=== PATIENT | male | born 1960 | race Caucasian/White ===

== ENCOUNTER 2021-03-08 04:19 | Emergency (ER) | payer SELFPAY ==
[2021-03-08] MEDS ORDERED: methylPREDNISolone Sodium Succinate 125 MG/2 ML SDV IVPUSH ONE (04:20)
[2021-03-08] MEDS ORDERED: Famotidine 20 MG/2 ML SDV IVPUSH ONE (04:20)
[2021-03-08] MEDS ORDERED: diphenhydrAMINE 50 MG/ML SDV IVPUSH ONE (04:20)
[2021-03-08] MEDS ORDERED: Sodium Chloride 0.9% 1,000 ML IV ONE (04:24)
--- NOTE | 2021-03-08 04:33 | EDM.PDOC ---
ED HPI GENERAL MEDICAL PROBLEM - General Chief Complaint: Allergic Reaction Stated Complaint: ALLERGIC REACTION THROAT CLOSING Time Seen by Provider: 03/08/21 04:25 Source of Information: Reports: Patient, Family History Limitations: Reports: No Limitations - History of Present Illness INITIAL COMMENTS - FREE TEXT/NARRATIVE: ED ambulatory, with anaphylactic reaction, reports waking at 3am to go to bathroom and noted feeling like throat closing, took epi pen 30minutes [employer]. One similar episode in past. Does not know what was possible trigger to this or prior episode. No new food. Out at [facility] [place] yesterday. Recently started on Lisinopril but prior episode was before starting Lisinopril. - Related Data Allergies Allergy/AdvReac Type Severity Reaction Status Date / Time No Known Allergies Allergy Verified 03/08/21 04:29 Home Meds: Home Meds . [No Known Home Meds] 08/02/18 [History] Past Medical History - Past Health History Medical/Surgical History: Denies Medical/Surgical History Social & Family History - Caffeine Use Caffeine Use: Reports: Coffee ED ROS ALLERGIC REACTION - Review of Systems Review Of Systems: Comprehensive ROS is negative, except as noted in HPI. ED EXAM GENERAL NO PERIP PULSE - Physical Exam Exam: See Below Exam Limited By: No Limitations General Appearance: Alert, Mild Distress Eye Exam: Bilateral Eye: EOMI Ears: Normal External Exam Nose: Normal Inspection Throat/Mouth: Other (thick tongue muffled voice). No: No Airway Compromise Head: Atraumatic, Normocephalic Neck: Normal Inspection Respiratory/Chest: Decreased Breath Sounds, Rhonchi. No: Stridor Cardiovascular: Regular Rate, Rhythm, No Edema GI/Abdominal: Normal Bowel Sounds, Soft Extremities: Normal Inspection Neurological: Alert, Oriented, Normal Cognition, Normal Gait Psychiatric: Anxious Skin Exam: Warm, Dry, Intact, Normal Color, No Rash Course - Vital Signs Last Recorded V/S: Last Vital Signs Temp 98.3 F 03/08/21 06:16 Pulse 91 03/08/21 06:44 Resp 18 03/08/21 06:44 BP 191/76 H 03/08/21 06:44 Pulse Ox 99 03/08/21 06:44 - Orders/Labs/Meds Labs: Laboratory Tests 03/08/21 03/08/21 03/08/21 Range/Units 04:40 04:40 04:40 WBC 7.6 (5.0-10.0) 10^3/uL RBC 4.06 L (4.6-6.2) 10^6/uL Hgb 12.3 L (14.0-18.0) g/dL Hct 37.6 L (40.0-54.0) % MCV 92.6 (80-100) fL MCH 30.3 (27.0-34.0) pg MCHC 32.7 L (33.0-35.0) g/dL Plt Count 346 (150-450) 10^3/uL Neut % (Auto) 54.6 (42.2-75.2) % Lymph % (Auto) 27.9 (20.5-50.1) % Wythe % (Auto) 11.3 H (2-8) % Eos % (Auto) 4.6 H (1.0-3.0) % Baso % (Auto) 1.6 H (0.0-1.0) % Sodium 140 (136-145) mmol/L Potassium 3.8 (3.5-5.1) mmol/L Chloride 103 (98-107) mmol/L Carbon Dioxide 26 (21-32) mmol/L Anion Gap 14.8 H (7-13) mEq/L BUN 52 H (7-18) mg/dL Creatinine 2.69 H (0.70-1.30) mg/dL Est Cr Clr Drug Dosing 30.33 mL/min Estimated GFR (MDRD) 24 BUN/Creatinine Ratio 19.3 (No establ ref range) Glucose 106 H (70-99) mg/dL Lactic Acid 1.1 (0.4-2.0) mmol/L Calcium 8.0 L (8.5-10.1) mg/dL Total Bilirubin 0.5 (0.2-1.0) mg/dL AST 34 (15-37) U/L ALT 21 (16-63) U/L Alkaline Phosphatase 71 (46-116) U/L C-Reactive Protein 0.7 (0.0-0.9) mg/dL Total Protein 6.8 (6.4-8.2) g/dL Albumin 3.4 (3.4-5.0) g/dL Globulin 3.4 Albumin/Globulin Ratio 1.0 SARS-CoV-2 RNA (ALIRIO) (NEGATIVE) 03/08/21 Range/Units 06:15 WBC (5.0-10.0) 10^3/uL RBC (4.6-6.2) 10^6/uL Hgb (14.0-18.0) g/dL Hct (40.0-54.0) % MCV (80-100) fL MCH (27.0-34.0) pg MCHC (33.0-35.0) g/dL Plt Count (150-450) 10^3/uL Neut % (Auto) (42.2-75.2) % Lymph % (Auto) (20.5-50.1) % Wythe % (Auto) (2-8) % Eos % (Auto) (1.0-3.0) % Baso % (Auto) (0.0-1.0) % Sodium (136-145) mmol/L Potassium (3.5-5.1) mmol/L Chloride (98-107) mmol/L Carbon Dioxide (21-32) mmol/L Anion Gap (7-13) mEq/L BUN (7-18) mg/dL Creatinine (0.70-1.30) mg/dL Est Cr Clr Drug Dosing mL/min Estimated GFR (MDRD) BUN/Creatinine Ratio (No establ ref range) Glucose (70-99) mg/dL Lactic Acid (0.4-2.0) mmol/L Calcium (8.5-10.1) mg/dL Total Bilirubin (0.2-1.0) mg/dL AST (15-37) U/L ALT (16-63) U/L Alkaline Phosphatase (46-116) U/L C-Reactive Protein (0.0-0.9) mg/dL Total Protein (6.4-8.2) g/dL Albumin (3.4-5.0) g/dL Globulin Albumin/Globulin Ratio SARS-CoV-2 RNA (ALIRIO) Negative (NEGATIVE) Meds: Medications Discontinued Medications Generic Name Dose Route Start Last Admin Trade Name Freq PRN Reason Stop Dose Admin Albuterol 2.5 mg 03/08/21 05:46 03/08/21 05:51 Albuterol 0.083% 2.5 Mg/3 Ml Neb Soln NEB 03/08/21 05:47 2.5 mg ONETIME ONE Administration Albuterol/Ipratropium 3 ml 03/08/21 05:58 03/08/21 06:13 Albuterol/Ipratropium 3.0-0.5 Mg/3 Ml Neb Soln NEB 03/08/21 05:59 3 ml ONETIME ONE Administration Diphenhydramine HCl 50 mg 03/08/21 04:20 03/08/21 04:30 Diphenhydramine 50 Mg/Ml Sdv IVPUSH 03/08/21 04:21 50 mg ONETIME ONE Administration Epinephrine HCl 0.3 mg 03/08/21 04:33 03/08/21 05:19 Epinephrine 1 Mg/1 Ml Amp IM 03/08/21 04:34 0.3 mg ONETIME ONE Administration Epinephrine HCl 0.3 mg 03/08/21 05:09 03/08/21 05:19 Epinephrine 1 Mg/Ml Sdv SUBCUT 03/08/21 05:10 Not Given ONETIME ONE Epinephrine HCl Confirm 03/08/21 05:12 03/08/21 05:20 Epinephrine 1 Mg/1 Ml Amp Administered 03/08/21 05:13 Not Given Dose 1 mg .ROUTE .STK-MED ONE Famotidine 20 mg 03/08/21 04:20 03/08/21 04:30 Famotidine 20 Mg/2 Ml Sdv IVPUSH 03/08/21 04:21 20 mg ONETIME ONE Administration Sodium Chloride 1,000 mls @ 500 mls/hr 03/08/21 04:24 03/08/21 04:34 Normal Saline IV 03/08/21 06:23 500 mls/hr .BOLUS ONE Administration Ipratropium Mico 1 mg 03/08/21 06:41 Ipratropium 0.02% 0.5 Mg/2.5 Ml Neb Soln NEB 03/08/21 06:42 ONETIME ONE Ipratropium Mico Confirm 03/08/21 06:47 Ipratropium 0.02% 0.5 Mg/2.5 Ml Neb Soln Administered 03/08/21 06:48 Dose 0.5 mg .ROUTE .STK-MED ONE Methylprednisolone Sodium Succinate 125 mg 03/08/21 04:20 03/08/21 04:30 Methylprednisolone Sodium Succinate 125 Mg/2 Ml Sdv IVPUSH 03/08/21 04:21 125 mg ONETIME ONE Administration Racepinephrine 0.5 ml 03/08/21 05:12 03/08/21 05:18 Racepinephrine 2.25% 0.5 Ml Neb Soln NEB 03/08/21 05:13 0.5 ml ONETIME ONE Administration Racepinephrine 1 ml 03/08/21 06:40 Racepinephrine 2.25% 0.5 Ml Neb Soln NEB 03/08/21 06:41 ONETIME ONE Racepinephrine Confirm 03/08/21 06:43 Racepinephrine 2.25% 0.5 Ml Neb Soln Administered 03/08/21 06:44 Dose 1 ml .ROUTE .STK-MED ONE - Re-Assessments/Exams Free Text/Narrative Re-Assessment/Exam: 03/08/21 06:15 Minimal improvement. Voice continued muffled. slight improvement swallowing, rare cough. HS stable 70's to 80's. Sats variable 92-100% Patient does not feeling better than presentation. TC Dr Yanick Silva. Accepting. Tx via [facility]. Departure - Departure Time of Disposition: 06:26 Disposition: DC/Tfer to Acute Hospital 02 Condition: Fair, Undetermined Clinical Impression: Angio-edema Qualifiers: Encounter type: initial encounter Qualified Code(s): T78.3XXA - Angioneurotic edema, initial encounter - Discharge Information *PRESCRIPTION DRUG MONITORING PROGRAM REVIEWED*: No *COPY OF PRESCRIPTION DRUG MONITORING REPORT IN PATIENT BRENNEN: No Forms: ED Department Discharge Sepsis Event Note (ED) - Evaluation Sepsis Screening Result: No Definite Risk
[2021-03-08] MEDS: EPINEPHrine 1 MG/1 ML Amp IM ONE ×2 (04:48→05:19)
[2021-03-08 05:04] LABS: ANION GAP 14.8 mEq/L (7-13)
[2021-03-08] MEDS ORDERED: EPINEPHrine 1 MG/ML SDV SUBCUT ONE (05:09)
[2021-03-08] MEDS ORDERED: EPINEPHrine 1 MG/1 ML Amp ONE (05:12)
[2021-03-08] MEDS ORDERED: Racepinephrine 2.25% 0.5 ML Neb Soln NEB ONE ×2 (05:12→06:40)
[2021-03-08] MEDS ORDERED: Albuterol 0.083% 2.5 MG/3 ML Neb Soln NEB ONE (05:46)
[2021-03-08] MEDS ORDERED: Albuterol/Ipratropium 3.0-0.5 MG/3 ML Neb Soln NEB ONE (05:58)
[2021-03-08] MEDS ORDERED: Ipratropium 0.02% 0.5 MG/2.5 ML Neb Soln NEB ONE (06:41)
[2021-03-08] MEDS ORDERED: Racepinephrine 2.25% 0.5 ML Neb Soln ONE (06:43)
[2021-03-08] MEDS ORDERED: Ipratropium 0.02% 0.5 MG/2.5 ML Neb Soln ONE (06:47)
== END 2021-03-08 06:48 ==
LOC: DL.ED 04:19
DX: T78.3XXA Angioneurotic edema, initial encounter (principal); Z20.822 Contact with and (suspected) exposure to COVID-19
CPT/HCPCS: 36415; 80053; 83605; 85025; 86140; 94640; J0171; J1200; J2930; J3490; J7030; J7613-GY; J7620-GY; U0002

== ENCOUNTER 2021-12-30 03:31 | Observation (INO) | payer MEDICAID ==
[2021-12-30] MEDS ORDERED: methylPREDNISolone Sodium Succinate 125 MG/2 ML SDV IVPUSH ONE (03:51)
[2021-12-30] MEDS ORDERED: Famotidine 20 MG/2 ML SDV IVPUSH ONE (03:52)
[2021-12-30 04:26] LABS: ANION GAP 18.2 mEq/L (7-13)
[2021-12-30] MEDS ORDERED: Albuterol/Ipratropium 3.0-0.5 MG/3 ML Neb Soln NEB PRN (07:09)
[2021-12-30] MEDS ORDERED: Acetaminophen 325 MG Tab PO PRN (07:09)
[2021-12-30] MEDS ORDERED: HYDROmorphone 0.5 MG/0.5 ML Syringe IVPUSH PRN (07:09)
[2021-12-30] MEDS ORDERED: Ondansetron 4 MG Tab.DIS PO PRN (07:09)
[2021-12-30] MEDS ORDERED: diphenhydrAMINE 50 MG/ML SDV IVPUSH ONE (07:13)
[2021-12-30] MEDS ORDERED: Sodium Chloride 0.9% 1,000 ML IV SCH (08:20)
[2021-12-30] MEDS: Nicotine 21 MG/24 Hr Patch TRDERM SCH (08:24)
[2021-12-30] MEDS: Famotidine 20 MG/2 ML SDV IVPUSH SCH (12:46)
[2021-12-30 15:07] LABS: BARBITURATES,URINE NEGATIVE (NEGATIVE); BENZODIAZEPINE,URINE NEGATIVE (NEGATIVE); MDMA (ECSTASY), URINE NEGATIVE (NEGATIVE); METHADONE,URINE NEGATIVE (NEGATIVE); METHAMPHETAMINES,URINE NEGATIVE (NEGATIVE); OPIATES,URINE NEGATIVE (NEGATIVE); PHENCYCLIDINE,URINE NEGATIVE (NEGATIVE); TCA,URINE NEGATIVE (NEGATIVE)
[2021-12-30 15:08] LABS: AMPHETAMINES,URINE NEGATIVE (NEGATIVE); OXYCODONE,URINE NEGATIVE (NEGATIVE)
[2021-12-30] MEDS: Dexamethasone 4 MG/ML SDV IVPUSH SCH ×2 (15:15→21:30)
[2021-12-30] MEDS ORDERED: Naproxen 500 MG Tab PO SCH (18:00)
[2021-12-30] MEDS ORDERED: Non-Formulary Medication 1 Each (Fluticasone/Vilanterol 1 EACH Each) INH SCH (21:00)
[2021-12-30] MEDS ORDERED: Famotidine 20 MG/2 ML SDV IVPUSH SCH (21:00)
[2021-12-30] MEDS ORDERED: Montelukast 10 MG Tab PO SCH (21:00)
[2021-12-30] MEDS ORDERED: Check Patch TRDERM SCH (21:00)
[2021-12-30] MEDS: diphenhydrAMINE 50 MG/ML SDV IVPUSH SCH (21:26)
[2021-12-31] MEDS: Nicotine 21 MG/24 Hr Patch TRDERM SCH (08:06)
[2021-12-31] MEDS: diphenhydrAMINE 50 MG/ML SDV IVPUSH SCH (08:08)
[2021-12-31] MEDS: Famotidine 20 MG/2 ML SDV IVPUSH SCH (08:08)
[2021-12-31] MEDS: Dexamethasone 4 MG/ML SDV IVPUSH SCH (08:09)
[2021-12-31] MEDS ORDERED: Naproxen 500 MG Tab PO SCH (09:00)
[2021-12-31] MEDS ORDERED: hydrALAZINE 20 MG/ML SDV IVPUSH PRN (10:28)
[2021-12-31] MEDS ORDERED: Dexamethasone 4 MG/ML SDV IVPUSH ONE (12:00)
== END 2021-12-31 13:00 | disposition home or self-care (01) ==
LOC: DL.ED 03:31 → DL.MS 07:16 → DL.ED 07:52
PROVIDERS: ADMIT Internal Medicine; ATTEND Internal Medicine
DX: T78.3XXA Angioneurotic edema, initial encounter (principal); E87.2 Acidosis; D50.9 Iron deficiency anemia, unspecified; I12.9 Hypertensive chronic kidney disease with stage 1 through stage 4 chronic kidney disease, or unspecified chronic kidney disease; N17.9 Acute kidney failure, unspecified; N18.30 Chronic kidney disease, stage 3 unspecified; R73.9 Hyperglycemia, unspecified; F17.210 Nicotine dependence, cigarettes, uncomplicated; Z71.6 Tobacco abuse counseling; Z79.51 Long term (current) use of inhaled steroids; Z79.899 Other long term (current) drug therapy
CPT/HCPCS: 36415; 76770; 80053; 80305; 84439; 84443; 84484; 85025; 85651; 86038; 86140; 86160; 86162; 87081; 87430; 93005; 96374; 96375; 96376; 99285; A9270; G0378; J0360; J1100; J1200; J2930; J3490; J7030

== ENCOUNTER 2023-02-02 02:27 | Inpatient (IN) | payer MEDICAID ==
[2023-02-02 02:54] LABS: HEMATOCRIT 37.8 % (40.0-54.0); MEAN CORPUSCULAR HEMOGLOBIN 29.1 pg (27.0-34.0); MEAN CORPUSCULAR HGB CONC 34.4 g/dL (33.0-35.0); MEAN CORPUSCULAR VOLUME 84.6 fL (80-100); PLATELET COUNT,PLT 404 10^3/uL (150-450); RED BLOOD CELL COUNT 4.47 10^6/uL (4.6-6.2); WHITE BLOOD CELL COUNT,WBC 10.9 10^3/uL (5.0-10.0)
[2023-02-02] MEDS ORDERED: Dexamethasone 4 MG/ML SDV IVPUSH ONE (02:55)
[2023-02-02] MEDS ORDERED: Albuterol/Ipratropium 3.0-0.5 MG/3 ML Neb Soln NEB ONE ×2 (02:55→02:56)
[2023-02-02] MEDS ORDERED: Sodium Chloride 0.9% 1,000 ML IV ONE ×3 (02:58→03:04)
[2023-02-02] MEDS ORDERED: Ketorolac 30 MG/ML SDV IVPUSH ONE (03:01)
[2023-02-02] MEDS ORDERED: Levofloxacin/Dextrose 5%-Water 750 MG in Premix Bag 1 BAG IV ONE (03:11)
[2023-02-02 03:12] LABS: BASOPHILS PERCENT AUTO 0.2 % (0.0-1.0); EOSINOPHILS PERCENT AUTO 0.1 % (1.0-3.0); LYMPHOCYTES PERCENT AUTO 20.1 % (20.5-50.1); MONOCYTES PERCENT AUTO 21.4 % (2-8); NEUTROPHILS PERCENT AUTO 58.2 % (42.2-75.2)
[2023-02-02] MEDS: Albuterol/Ipratropium 3.0-0.5 MG/3 ML Neb Soln NEB ONE ×2 (03:12→03:13)
[2023-02-02 03:17] LABS: LACTIC ACID 1.7 mmol/L (0.4-2.0)
[2023-02-02 03:25] LABS: O2 DELIVERY DEVICE NASAL CANNULA
[2023-02-02 03:26] LABS: A/G RATIO 0.7; ALBUMIN 3.4 g/dL (3.4-5.0); ANION GAP 20.3 mEq/L (7-13); BILIRUBIN TOTAL 0.5 mg/dL (0.2-1.0); BUN/CREATININE RATIO 10.7 (No establ ref range); CALCIUM 8.7 mg/dL (8.5-10.1); CREATININE 1.78 mg/dL (0.70-1.30); EST CRCL DRUG DOSING (CG) 46.02 mL/min; POTASSIUM,K 3.3 mmol/L (3.5-5.1)
[2023-02-02 03:30] LABS: BASE EXCESS VENOUS -5.7 mmol/l ((-2)-(+3)); BICARBONATE,VENOUS 18 mmol/l (19-25); O2 SATURATION VENOUS 90.8 % (60-80); PCO2 VENOUS 33 mmHg (41-51); PH,VENOUS 7.36 (7.31-7.41); PO2 VENOUS 67 mmHg (35-42)
[2023-02-02] MEDS ORDERED: Iopamidol 755 Mg/ML 100 ML Bottle IVPUSH ONE (03:30)
[2023-02-02 03:41] LABS: LYMPHOCYTES PERCENT MAN 18 % (20-50); MONOCYTES PERCENT MAN 20 % (2-8); SEG NEUTROPHILS PERCENT MAN 62 % (42-75)
[2023-02-02] MEDS: Sodium Chloride 0.9% 10 ML Syringe FLUSH PRN ×3 (05:13→21:31)
[2023-02-02] MEDS ORDERED: Potassium Chloride 10 MEQ Tab.ER PO ONE (05:41)
[2023-02-02] MEDS ORDERED: Acetaminophen 325 MG Tab PO PRN (07:41)
[2023-02-02] MEDS ORDERED: Acetaminophen/HYDROcodone 325-5 MG Tab PO PRN (07:41)
[2023-02-02] MEDS ORDERED: Magnesium Hydroxide 400 MG/5 ML Susp 30 ML Cup PO PRN (07:43)
[2023-02-02] MEDS ORDERED: Ondansetron 4 MG/2 ML SDV IVPUSH PRN (07:43)
[2023-02-02] MEDS ORDERED: Polyethylene Glycol 3350 Powder 17 GM Packet PO PRN (07:43)
[2023-02-02] MEDS ORDERED: Glucagon,Human Recombinant 1 MG Vial IM PRN (07:46)
[2023-02-02] MEDS ORDERED: 50% Dextrose in Water 50 ML Syringe IVPUSH PRN (07:46)
[2023-02-02] MEDS ORDERED: Metoprolol Tartrate 5 MG/5 ML SDV IVPUSH PRN (07:47)
[2023-02-02] MEDS ORDERED: Famotidine 20 MG Tab PO ONE (07:48)
[2023-02-02] MEDS ORDERED: Famotidine 20 MG/2 ML SDV IVPUSH ONE (09:00)
[2023-02-02] MEDS ORDERED: Magnesium Sulfate/Water 2 GM in Premix Bag 1 BAG IV ONE (09:00)
[2023-02-02] MEDS: Insulin Lispro 100 Units/ML 3 ML Vial SUBCUT SCH ×3 (10:14→17:24)
[2023-02-02] MEDS: Saccharomyces Boulardii (Probiotic) 250 MG Cap PO SCH ×2 (10:17→21:31)
[2023-02-02] MEDS: Nicotine 21 MG/24 Hr Patch TRDERM SCH (10:24)
[2023-02-02] MEDS: methylPREDNISolone Sodium Succinate 125 MG/2 ML SDV IVPUSH SCH ×3 (10:27→21:30)
[2023-02-02] MEDS: Tiotropium Bromide 4 GM Inhalation Spray (2.5mcg/1 dose; 10 doses) INH SCH (10:29)
[2023-02-02] MEDS ORDERED: Insulin Glarg,Human.Rec.Analog 100 Unit/ML SUBCUT ONE (10:30)
[2023-02-02] MEDS: Piperacillin/Tazobactam 3.375 GM in Sodium Chloride 0.9% 100 ML IV SCH ×2 (13:02→17:51)
[2023-02-02] MEDS: Albuterol/Ipratropium 3.0-0.5 MG/3 ML Neb Soln NEB PRN ×2 (15:17→21:50)
[2023-02-02] MEDS: Albuterol/Ipratropium 3.0-0.5 MG/3 ML Neb Soln NEB SCH (17:54)
[2023-02-02] MEDS: Famotidine 20 MG Tab PO SCH ×2 (17:57→21:34)
[2023-02-02 18:41] LABS: HEMOGLOBIN A1C 5.9 % (<5.7)
[2023-02-02 18:51] LABS: ALBUMIN 2.8 g/dL (3.4-5.0); ANION GAP 17.3 mEq/L (7-13); BUN/CREATININE RATIO 17.5 (No establ ref range); CALCIUM 8.6 mg/dL (8.5-10.1); CREATININE 1.43 mg/dL (0.70-1.30); EST CRCL DRUG DOSING (CG) 57.28 mL/min; POTASSIUM,K 4.3 mmol/L (3.5-5.1); PROTEIN TOTAL,TP 7.2 g/dL (6.4-8.2)
[2023-02-02 18:52] LABS: BILIRUBIN TOTAL 0.2 mg/dL (0.2-1.0)
[2023-02-02 18:53] LABS: A/G RATIO 0.64
[2023-02-02] MEDS ORDERED: Non-Formulary Medication 1 Each (Fluticasone/Vilanterol 1 EACH Each) INH SCH (21:00)
[2023-02-02] MEDS ORDERED: Insulin Glarg,Human.Rec.Analog 100 Unit/ML SUBCUT SCH (21:00)
[2023-02-02] MEDS: Montelukast 10 MG Tab PO SCH (21:31)
[2023-02-02] MEDS: Loratadine 10 MG Tab PO SCH (21:31)
[2023-02-02] MEDS: Melatonin 3 MG Tab PO PRN (21:50)
[2023-02-03] MEDS: methylPREDNISolone Sodium Succinate 125 MG/2 ML SDV IVPUSH SCH (02:06)
[2023-02-03] MEDS: Albuterol/Ipratropium 3.0-0.5 MG/3 ML Neb Soln NEB PRN ×3 (03:10→21:39)
[2023-02-03] MEDS: Piperacillin/Tazobactam 3.375 GM in Sodium Chloride 0.9% 100 ML IV SCH ×5 (05:26→17:47)
[2023-02-03 06:12] LABS: BASOPHILS PERCENT AUTO 0.2 % (0.0-1.0); HEMATOCRIT 31.4 % (40.0-54.0); HEMOGLOBIN 10.6 g/dL (14.0-18.0); LYMPHOCYTES PERCENT AUTO 8.6 % (20.5-50.1); MEAN CORPUSCULAR HEMOGLOBIN 28.7 pg (27.0-34.0); MEAN CORPUSCULAR HGB CONC 33.8 g/dL (33.0-35.0); MEAN CORPUSCULAR VOLUME 85.1 fL (80-100); MONOCYTES PERCENT AUTO 6.6 % (2-8); NEUTROPHILS PERCENT AUTO 84.6 % (42.2-75.2); PLATELET COUNT,PLT 404 10^3/uL (150-450); RED BLOOD CELL COUNT 3.69 10^6/uL (4.6-6.2); WHITE BLOOD CELL COUNT,WBC 9.2 10^3/uL (5.0-10.0)
[2023-02-03 06:31] LABS: ALBUMIN 2.5 g/dL (3.4-5.0); ANION GAP 17.1 mEq/L (7-13); BILIRUBIN TOTAL 0.1 mg/dL (0.2-1.0); BUN/CREATININE RATIO 18.9 (No establ ref range); CALCIUM 8.6 mg/dL (8.5-10.1); CREATININE 1.32 mg/dL (0.70-1.30); EST CRCL DRUG DOSING (CG) 62.05 mL/min; POTASSIUM,K 4.1 mmol/L (3.5-5.1); PROTEIN TOTAL,TP 6.6 g/dL (6.4-8.2)
[2023-02-03 06:47] LABS: A/G RATIO 0.61; C-REACTIVE PROTEIN 26.5 mg/dL (0.0-0.9)
[2023-02-03] MEDS: Dexamethasone 4 MG/ML SDV IVPUSH SCH ×2 (08:13→21:38)
[2023-02-03] MEDS: Sodium Chloride 0.9% 10 ML Syringe FLUSH PRN ×3 (08:14→21:38)
[2023-02-03] MEDS: Insulin Lispro 100 Units/ML 3 ML Vial SUBCUT SCH ×3 (08:36→17:23)
[2023-02-03] MEDS ORDERED: Loratadine 10 MG Tab PO SCH (09:00)
[2023-02-03] MEDS ORDERED: guaiFENesin 600 MG Tab.ER PO ONE (09:25)
[2023-02-03] MEDS: Hydrochlorothiazide/Triamterene 25-37.5 Tab PO SCH (09:32)
[2023-02-03] MEDS: Famotidine 20 MG Tab PO SCH ×2 (09:32→21:42)
[2023-02-03] MEDS: Saccharomyces Boulardii (Probiotic) 250 MG Cap PO SCH ×2 (09:32→21:39)
[2023-02-03] MEDS: amLODIPine 5 MG Tab PO SCH (09:33)
[2023-02-03] MEDS: Nicotine 21 MG/24 Hr Patch TRDERM SCH (09:35)
[2023-02-03] MEDS: ANORO ELLIPTA INH SCH (09:40)
[2023-02-03] MEDS: Insulin Glarg,Human.Rec.Analog 100 Unit/ML SUBCUT SCH ×2 (09:42→21:50)
[2023-02-03] MEDS: Tiotropium Bromide 4 GM Inhalation Spray (2.5mcg/1 dose; 10 doses) INH SCH (09:44)
[2023-02-03] MEDS: Albuterol/Ipratropium 3.0-0.5 MG/3 ML Neb Soln NEB SCH ×2 (09:50→18:31)
[2023-02-03] MEDS: Sodium Chloride 0.9% 250 ML IV SCH ×2 (11:46→16:42)
[2023-02-03] MEDS: guaiFENesin 600 MG Tab.ER PO SCH (21:39)
[2023-02-03] MEDS: Melatonin 3 MG Tab PO PRN (21:40)
[2023-02-03] MEDS: Loratadine 10 MG Tab PO SCH (21:41)
[2023-02-03] MEDS: Montelukast 10 MG Tab PO SCH (21:42)
[2023-02-03] MEDS: HYDROmorphone 0.5 MG/0.5 ML Syringe IVPUSH PRN (21:43)
[2023-02-04] MEDS: Sodium Chloride 0.9% 10 ML Syringe FLUSH PRN (00:15)
[2023-02-04] MEDS: Piperacillin/Tazobactam 3.375 GM in Sodium Chloride 0.9% 100 ML IV SCH ×4 (00:16→17:19)
[2023-02-04] MEDS: Albuterol/Ipratropium 3.0-0.5 MG/3 ML Neb Soln NEB PRN ×3 (01:30→12:14)
[2023-02-04] MEDS: HYDROmorphone 0.5 MG/0.5 ML Syringe IVPUSH PRN (01:30)
[2023-02-04 05:55] LABS: HEMATOCRIT 31.1 % (40.0-54.0); MEAN CORPUSCULAR HEMOGLOBIN 32.9 pg (27.0-34.0); MEAN CORPUSCULAR HGB CONC 38.6 g/dL (33.0-35.0); MEAN CORPUSCULAR VOLUME 85.2 fL (80-100); PLATELET COUNT,PLT 477 10^3/uL (150-450); RED BLOOD CELL COUNT 3.65 10^6/uL (4.6-6.2); WHITE BLOOD CELL COUNT,WBC 15.4 10^3/uL (5.0-10.0)
[2023-02-04 06:01] LABS: LYMPHOCYTES PERCENT AUTO 7.3 % (20.5-50.1); MONOCYTES PERCENT AUTO 9.5 % (2-8); NEUTROPHILS PERCENT AUTO 83.1 % (42.2-75.2)
[2023-02-04 06:02] LABS: BASOPHILS PERCENT AUTO 0.1 % (0.0-1.0)
[2023-02-04 06:19] LABS: ALBUMIN 2.5 g/dL (3.4-5.0); ANION GAP 12.4 mEq/L (7-13); BILIRUBIN TOTAL 0.2 mg/dL (0.2-1.0); BUN/CREATININE RATIO 20.3 (No establ ref range); CREATININE 1.28 mg/dL (0.70-1.30); EST CRCL DRUG DOSING (CG) 63.99 mL/min; MAGNESIUM 1.8 mg/dL (1.8-2.4); POTASSIUM,K 4.4 mmol/L (3.5-5.1); PROTEIN TOTAL,TP 6.5 g/dL (6.4-8.2)
[2023-02-04 06:20] LABS: A/G RATIO 0.63; C-REACTIVE PROTEIN 14.4 mg/dL (0.0-0.9)
[2023-02-04 06:22] LABS: LYMPHOCYTES PERCENT MAN 9 % (20-50); MONOCYTES PERCENT MAN 7 % (2-8); SEG NEUTROPHILS PERCENT MAN 84 % (42-75)
[2023-02-04] MEDS: Insulin Lispro 100 Units/ML 3 ML Vial SUBCUT SCH ×3 (07:39→16:36)
[2023-02-04] MEDS: Albuterol/Ipratropium 3.0-0.5 MG/3 ML Neb Soln NEB SCH ×2 (08:39→17:19)
[2023-02-04] MEDS: amLODIPine 5 MG Tab PO SCH (08:39)
[2023-02-04] MEDS: Famotidine 20 MG Tab PO SCH ×2 (08:40→20:36)
[2023-02-04] MEDS: guaiFENesin 600 MG Tab.ER PO SCH ×2 (08:40→20:36)
[2023-02-04] MEDS: Hydrochlorothiazide/Triamterene 25-37.5 Tab PO SCH (08:40)
[2023-02-04] MEDS: Saccharomyces Boulardii (Probiotic) 250 MG Cap PO SCH ×2 (08:41→20:36)
[2023-02-04] MEDS: Insulin Glarg,Human.Rec.Analog 100 Unit/ML SUBCUT SCH ×2 (08:47→20:33)
[2023-02-04] MEDS: ANORO ELLIPTA INH SCH (08:47)
[2023-02-04] MEDS: Tiotropium Bromide 4 GM Inhalation Spray (2.5mcg/1 dose; 10 doses) INH SCH (08:47)
[2023-02-04] MEDS: Nicotine 21 MG/24 Hr Patch TRDERM SCH (08:49)
[2023-02-04] MEDS: VANCOmycin 1.5 GM/300 ML 1.5 GM in Premix Bag 1 BAG IV SCH (08:55)
[2023-02-04] MEDS: Dexamethasone 4 MG/ML SDV IVPUSH SCH ×2 (08:56→20:35)
[2023-02-04] MEDS: hydrALAZINE 20 MG/ML SDV IVPUSH PRN ×2 (11:00→16:58)
[2023-02-04] MEDS ORDERED: cloNIDine 0.1 MG Tab PO ONE (17:22)
[2023-02-04] MEDS: Melatonin 3 MG Tab PO PRN (20:35)
[2023-02-04] MEDS: cloNIDine 0.1 MG Tab PO SCH (20:36)
[2023-02-04] MEDS: Montelukast 10 MG Tab PO SCH (20:36)
[2023-02-04] MEDS: Loratadine 10 MG Tab PO SCH (20:36)
[2023-02-05] MEDS: Piperacillin/Tazobactam 3.375 GM in Sodium Chloride 0.9% 100 ML IV SCH ×6 (05:35→23:51)
[2023-02-05 06:25] LABS: BASOPHILS PERCENT AUTO 0.3 % (0.0-1.0); HEMATOCRIT 32.2 % (40.0-54.0); LYMPHOCYTES PERCENT AUTO 10.4 % (20.5-50.1); MEAN CORPUSCULAR HEMOGLOBIN 28.6 pg (27.0-34.0); MEAN CORPUSCULAR HGB CONC 34.2 g/dL (33.0-35.0); MEAN CORPUSCULAR VOLUME 83.9 fL (80-100); NEUTROPHILS PERCENT AUTO 79.3 % (42.2-75.2); PLATELET COUNT,PLT 488 10^3/uL (150-450); RED BLOOD CELL COUNT 3.84 10^6/uL (4.6-6.2); WHITE BLOOD CELL COUNT,WBC 15.8 10^3/uL (5.0-10.0)
[2023-02-05 06:49] LABS: ALBUMIN 2.6 g/dL (3.4-5.0); BILIRUBIN TOTAL 0.3 mg/dL (0.2-1.0); BUN/CREATININE RATIO 20.6 (No establ ref range); C-REACTIVE PROTEIN 7.9 mg/dL (0.0-0.9); CALCIUM 8.9 mg/dL (8.5-10.1); CREATININE 1.41 mg/dL (0.70-1.30); EST CRCL DRUG DOSING (CG) 58.09 mL/min; MAGNESIUM 1.8 mg/dL (1.8-2.4); PROTEIN TOTAL,TP 6.4 g/dL (6.4-8.2)
[2023-02-05 06:51] LABS: A/G RATIO 0.68
[2023-02-05] MEDS: hydrALAZINE 20 MG/ML SDV IVPUSH PRN (07:51)
[2023-02-05] MEDS: Hydrochlorothiazide/Triamterene 25-37.5 Tab PO SCH ×3 (07:53→09:07)
[2023-02-05] MEDS: cloNIDine 0.1 MG Tab PO SCH ×3 (07:54→21:11)
[2023-02-05] MEDS: Dexamethasone 4 MG/ML SDV IVPUSH SCH ×2 (07:54→09:06)
[2023-02-05] MEDS: Saccharomyces Boulardii (Probiotic) 250 MG Cap PO SCH ×3 (07:54→21:10)
[2023-02-05] MEDS: guaiFENesin 600 MG Tab.ER PO SCH ×3 (07:55→21:11)
[2023-02-05] MEDS: amLODIPine 5 MG Tab PO SCH ×2 (07:55→09:07)
[2023-02-05] MEDS: Famotidine 20 MG Tab PO SCH ×3 (07:55→21:12)
[2023-02-05] MEDS: Insulin Lispro 100 Units/ML 3 ML Vial SUBCUT SCH ×3 (08:04→16:25)
[2023-02-05] MEDS: Nicotine 21 MG/24 Hr Patch TRDERM SCH (08:04)
[2023-02-05] MEDS: Tiotropium Bromide 4 GM Inhalation Spray (2.5mcg/1 dose; 10 doses) INH SCH (08:06)
[2023-02-05] MEDS: ANORO ELLIPTA INH SCH (08:07)
[2023-02-05] MEDS: Insulin Glarg,Human.Rec.Analog 100 Unit/ML SUBCUT SCH ×2 (08:09→21:07)
[2023-02-05] MEDS: VANCOmycin 1.5 GM/300 ML 1.5 GM in Premix Bag 1 BAG IV SCH (08:52)
[2023-02-05] MEDS ORDERED: hydrALAZINE 25 MG Tab PO SCH (09:00)
[2023-02-05] MEDS: Albuterol/Ipratropium 3.0-0.5 MG/3 ML Neb Soln NEB SCH ×2 (09:52→17:51)
[2023-02-05] MEDS ORDERED: DISULFIRAM 250 MG PO PRN (20:07)
[2023-02-05] MEDS: Loratadine 10 MG Tab PO SCH (21:10)
[2023-02-05] MEDS: Montelukast 10 MG Tab PO SCH (21:11)
[2023-02-05] MEDS: Melatonin 3 MG Tab PO PRN (21:12)
[2023-02-05] MEDS: Sodium Chloride 0.9% 10 ML Syringe FLUSH PRN (23:51)
[2023-02-06] MEDS: Albuterol/Ipratropium 3.0-0.5 MG/3 ML Neb Soln NEB SCH ×3 (04:57→17:46)
[2023-02-06] MEDS: Piperacillin/Tazobactam 3.375 GM in Sodium Chloride 0.9% 100 ML IV SCH ×4 (05:21→23:47)
[2023-02-06] MEDS: Sodium Chloride 0.9% 10 ML Syringe FLUSH PRN ×2 (05:21→23:47)
[2023-02-06 06:30] LABS: HEMOGLOBIN 11.1 g/dL (14.0-18.0); MEAN CORPUSCULAR HEMOGLOBIN 28.5 pg (27.0-34.0); MEAN CORPUSCULAR HGB CONC 33.6 g/dL (33.0-35.0); MEAN CORPUSCULAR VOLUME 84.8 fL (80-100); PLATELET COUNT,PLT 498 10^3/uL (150-450); RED BLOOD CELL COUNT 3.89 10^6/uL (4.6-6.2); WHITE BLOOD CELL COUNT,WBC 15.9 10^3/uL (5.0-10.0)
[2023-02-06 06:43] LABS: BASOPHILS PERCENT AUTO 0.1 % (0.0-1.0); EOSINOPHILS PERCENT AUTO 0.3 % (1.0-3.0); LYMPHOCYTES PERCENT AUTO 18.3 % (20.5-50.1); MONOCYTES PERCENT AUTO 13.1 % (2-8); NEUTROPHILS PERCENT AUTO 68.2 % (42.2-75.2)
[2023-02-06 06:53] LABS: ALBUMIN 2.6 g/dL (3.4-5.0); ANION GAP 13.7 mEq/L (7-13); BILIRUBIN TOTAL 0.4 mg/dL (0.2-1.0); BUN/CREATININE RATIO 21.6 (No establ ref range); C-REACTIVE PROTEIN 4.2 mg/dL (0.0-0.9); CALCIUM 8.7 mg/dL (8.5-10.1); CREATININE 1.48 mg/dL (0.70-1.30); EST CRCL DRUG DOSING (CG) 55.35 mL/min; POTASSIUM,K 4.7 mmol/L (3.5-5.1); PROTEIN TOTAL,TP 6.2 g/dL (6.4-8.2)
[2023-02-06 07:03] LABS: A/G RATIO 0.72
[2023-02-06 07:30] LABS: EOSINOPHILS PERCENT MAN 1 % (1-3); LYMPHOCYTES PERCENT MAN 18 % (20-50); MONOCYTES PERCENT MAN 6 % (2-8); SEG NEUTROPHILS PERCENT MAN 75 % (42-75)
[2023-02-06] MEDS: Insulin Lispro 100 Units/ML 3 ML Vial SUBCUT SCH ×3 (07:57→16:56)
[2023-02-06] MEDS: VANCOmycin 1.5 GM/300 ML 1.5 GM in Premix Bag 1 BAG IV SCH (09:06)
[2023-02-06] MEDS: cloNIDine 0.1 MG Tab PO SCH ×2 (09:06→22:10)
[2023-02-06] MEDS: Saccharomyces Boulardii (Probiotic) 250 MG Cap PO SCH ×2 (09:06→22:12)
[2023-02-06] MEDS: guaiFENesin 600 MG Tab.ER PO SCH ×2 (09:06→22:18)
[2023-02-06] MEDS: Hydrochlorothiazide/Triamterene 25-37.5 Tab PO SCH (09:07)
[2023-02-06] MEDS: Dexamethasone 4 MG/ML SDV IVPUSH SCH (09:07)
[2023-02-06] MEDS: amLODIPine 5 MG Tab PO SCH (09:07)
[2023-02-06] MEDS: Famotidine 20 MG Tab PO SCH ×2 (09:07→22:11)
[2023-02-06] MEDS: Insulin Glarg,Human.Rec.Analog 100 Unit/ML SUBCUT SCH ×3 (09:10→22:15)
[2023-02-06] MEDS: Tiotropium Bromide 4 GM Inhalation Spray (2.5mcg/1 dose; 10 doses) INH SCH (09:12)
[2023-02-06] MEDS: ANORO ELLIPTA INH SCH (09:13)
[2023-02-06] MEDS: Nicotine 21 MG/24 Hr Patch TRDERM SCH (09:14)
[2023-02-06] MEDS: Azithromycin 500 MG in Sodium Chloride 0.9% 250 ML IV SCH (11:14)
[2023-02-06] MEDS: Magnesium Oxide 400 MG Tab PO SCH (17:46)
[2023-02-06] MEDS ORDERED: traZODone 50 MG Tab PO ONE (21:49)
[2023-02-06] MEDS: Montelukast 10 MG Tab PO SCH (22:11)
[2023-02-06] MEDS: Loratadine 10 MG Tab PO SCH (22:11)
[2023-02-07] MEDS: Piperacillin/Tazobactam 3.375 GM in Sodium Chloride 0.9% 100 ML IV SCH ×3 (05:54→17:31)
[2023-02-07] MEDS: Sodium Chloride 0.9% 10 ML Syringe FLUSH PRN ×3 (05:54→10:24)
[2023-02-07] MEDS: Albuterol/Ipratropium 3.0-0.5 MG/3 ML Neb Soln NEB SCH (06:03)
[2023-02-07] MEDS: Insulin Lispro 100 Units/ML 3 ML Vial SUBCUT SCH ×3 (07:47→16:58)
[2023-02-07] MEDS: amLODIPine 5 MG Tab PO SCH (08:46)
[2023-02-07] MEDS: Saccharomyces Boulardii (Probiotic) 250 MG Cap PO SCH ×2 (08:46→21:13)
[2023-02-07] MEDS: Famotidine 20 MG Tab PO SCH ×2 (08:47→21:12)
[2023-02-07] MEDS: guaiFENesin 600 MG Tab.ER PO SCH ×2 (08:47→21:13)
[2023-02-07] MEDS: cloNIDine 0.1 MG Tab PO SCH ×2 (08:47→21:12)
[2023-02-07] MEDS: Hydrochlorothiazide/Triamterene 25-37.5 Tab PO SCH (08:47)
[2023-02-07] MEDS: Tiotropium Bromide 4 GM Inhalation Spray (2.5mcg/1 dose; 10 doses) INH SCH (08:48)
[2023-02-07] MEDS: Magnesium Oxide 400 MG Tab PO SCH ×2 (08:48→17:31)
[2023-02-07] MEDS: Dexamethasone 4 MG/ML SDV IVPUSH SCH (08:50)
[2023-02-07] MEDS: Insulin Glarg,Human.Rec.Analog 100 Unit/ML SUBCUT SCH ×2 (08:54→21:16)
[2023-02-07] MEDS: Nicotine 21 MG/24 Hr Patch TRDERM SCH (08:55)
[2023-02-07] MEDS: ANORO ELLIPTA INH SCH (08:59)
[2023-02-07] MEDS: Azithromycin 500 MG in Sodium Chloride 0.9% 250 ML IV SCH (10:24)
[2023-02-07] MEDS ORDERED: traZODone 50 MG Tab PO ONE (20:55)
[2023-02-07] MEDS: Loratadine 10 MG Tab PO SCH (21:13)
[2023-02-07] MEDS: Montelukast 10 MG Tab PO SCH (21:13)
[2023-02-07] MEDS: Albuterol/Ipratropium 3.0-0.5 MG/3 ML Neb Soln NEB PRN (22:50)
[2023-02-08] MEDS: Piperacillin/Tazobactam 3.375 GM in Sodium Chloride 0.9% 100 ML IV SCH ×3 (00:44→11:56)
[2023-02-08 06:29] LABS: EOSINOPHILS PERCENT AUTO 1.8 % (1.0-3.0); HEMATOCRIT 31.9 % (40.0-54.0); HEMOGLOBIN 10.7 g/dL (14.0-18.0); LYMPHOCYTES PERCENT AUTO 18.2 % (20.5-50.1); MEAN CORPUSCULAR HEMOGLOBIN 29.1 pg (27.0-34.0); MEAN CORPUSCULAR HGB CONC 33.5 g/dL (33.0-35.0); MEAN CORPUSCULAR VOLUME 86.7 fL (80-100); MONOCYTES PERCENT AUTO 11.7 % (2-8); NEUTROPHILS PERCENT AUTO 68.3 % (42.2-75.2); PLATELET COUNT,PLT 475 10^3/uL (150-450); RED BLOOD CELL COUNT 3.68 10^6/uL (4.6-6.2); WHITE BLOOD CELL COUNT,WBC 15.8 10^3/uL (5.0-10.0)
[2023-02-08 06:52] LABS: ALBUMIN 2.5 g/dL (3.4-5.0); BILIRUBIN TOTAL 0.2 mg/dL (0.2-1.0); BUN/CREATININE RATIO 25.7 (No establ ref range); C-REACTIVE PROTEIN 1.7 mg/dL (0.0-0.9); CALCIUM 8.4 mg/dL (8.5-10.1); CREATININE 1.44 mg/dL (0.70-1.30); EST CRCL DRUG DOSING (CG) 56.88 mL/min; MAGNESIUM 2.1 mg/dL (1.8-2.4)
[2023-02-08 06:56] LABS: A/G RATIO 0.71
[2023-02-08] MEDS: Insulin Lispro 100 Units/ML 3 ML Vial SUBCUT SCH ×2 (08:26→12:00)
[2023-02-08] MEDS: amLODIPine 5 MG Tab PO SCH (08:41)
[2023-02-08] MEDS: Nicotine 21 MG/24 Hr Patch TRDERM SCH (08:41)
[2023-02-08] MEDS: cloNIDine 0.1 MG Tab PO SCH (08:41)
[2023-02-08] MEDS: Famotidine 20 MG Tab PO SCH (08:41)
[2023-02-08] MEDS: Saccharomyces Boulardii (Probiotic) 250 MG Cap PO SCH (08:41)
[2023-02-08] MEDS: guaiFENesin 600 MG Tab.ER PO SCH (08:42)
[2023-02-08] MEDS: Dexamethasone 4 MG/ML SDV IVPUSH SCH (08:42)
[2023-02-08] MEDS: Hydrochlorothiazide/Triamterene 25-37.5 Tab PO SCH (08:42)
[2023-02-08] MEDS: Magnesium Oxide 400 MG Tab PO SCH (08:42)
[2023-02-08] MEDS: Insulin Glarg,Human.Rec.Analog 100 Unit/ML SUBCUT SCH (08:44)
[2023-02-08] MEDS: Tiotropium Bromide 4 GM Inhalation Spray (2.5mcg/1 dose; 10 doses) INH SCH (08:45)
[2023-02-08] MEDS: ANORO ELLIPTA INH SCH (08:45)
[2023-02-08] MEDS: Azithromycin 500 MG in Sodium Chloride 0.9% 250 ML IV SCH (10:33)
== END 2023-02-08 15:00 | disposition home or self-care (01) | DRG 871 ==
LOC: DL.ED 02:27 → UNDOADMIN 06:18 → DL.MS 06:18 → EDSEX 06:18 → DL.MS 06:22
PROVIDERS: ADMIT Internal Medicine; ATTEND Internal Medicine
PROC: 3E03329 Introduction of Other Anti-infective into Peripheral Vein, Percutaneous Approach (ICD-10-PCS; principal; 2023-02-02)
PROC: 5A09357 Assistance with Respiratory Ventilation, Less than 24 Consecutive Hours, Continuous Positive Airway Pressure (ICD-10-PCS; 2023-02-02)
DX: A41.9 Sepsis, unspecified organism (principal); J18.9 Pneumonia, unspecified organism; J96.01 Acute respiratory failure with hypoxia; E87.1 Hypo-osmolality and hyponatremia; J45.901 Unspecified asthma with (acute) exacerbation; E87.20 Acidosis, unspecified; J44.1 Chronic obstructive pulmonary disease with (acute) exacerbation; J44.0 Chronic obstructive pulmonary disease with (acute) lower respiratory infection; R65.20 Severe sepsis without septic shock; I12.9 Hypertensive chronic kidney disease with stage 1 through stage 4 chronic kidney disease, or unspecified chronic kidney disease; N18.30 Chronic kidney disease, stage 3 unspecified; F17.210 Nicotine dependence, cigarettes, uncomplicated; F10.10 Alcohol abuse, uncomplicated; R73.9 Hyperglycemia, unspecified; T38.0X5A Adverse effect of glucocorticoids and synthetic analogues, initial encounter; E87.6 Hypokalemia; E87.8 Other disorders of electrolyte and fluid balance, not elsewhere classified; Z20.822 Contact with and (suspected) exposure to COVID-19; D75.839 Thrombocytosis, unspecified; Z79.51 Long term (current) use of inhaled steroids; Z79.899 Other long term (current) drug therapy
CPT/HCPCS: 36415; 71045; 71275; 80053; 80202; 82803; 82947; 83036; 83605; 83735; 83880; 84145; 84484; 85025; 85379; 86140; 87040; 87804; 93005; 93010; 94640; 94660; 96361; 96365; 96366; 96375; 99291; 99291-25; 99292; A9270-GY; J0360; J0456; J1100; J1170; J1815-GY; J1885; J1956; J2543; J2930; J3370; J3475; J3490; J7030; J7050; J7620-GY; Q9967; U0002